=== PATIENT | male | born 1960 | race Caucasian/White ===

== ENCOUNTER 2025-02-20 07:33 | Outpatient (CLI) | payer BC, SELFPAY | END 2025-02-20 07:34 | disposition home or self-care (01) | LOC: NFLDREF 02-22 03:52 | PROVIDERS: PCP Family Medicine; Referring Provider Family Medicine; Visit Provider Family Medicine | DX: E78.5 Hyperlipidemia, unspecified (principal); R03.0 Elevated blood-pressure reading, without diagnosis of hypertension; Z12.5 Encounter for screening for malignant neoplasm of prostate | CPT/HCPCS: 80053; 80061; G0103 ==

== ENCOUNTER 2025-02-27 07:14 | Outpatient (CLI) | payer BC, SELFPAY ==
--- NOTE | 2025-02-27 07:15 | CRLHL7_ITS ---
For Patients: As a result of the Century Cures Act, medical imaging exams and procedure reports are released immediately into your electronic medical record. You may view this report before your referring provider. If you have questions, please contact your health care provider. Examination: US abdominal aorta Indication: Abdominal aortic aneurysm screening. Technique: Swenson scale and color Doppler images of the aorta and common iliac arteries are obtained. Comparison: None Findings: Proximal aorta: 2.6 x 2.6 cm, as visualized, partially obscured by bowel gas Mid aorta: 2.4 x 2.3 cm Distal aorta: 1.8 x 1.8 cm Right common iliac artery: 1.2 x 1.2 cm Left common iliac artery: 1.2 x 1.2 cm Impression: No abdominal aortic aneurysm. Dictated by Dominic Watsno MD @ 02/28/2025 10:52:09 AM (Electronically Signed)
== END 2025-02-27 07:15 | disposition home or self-care (01) ==
PROVIDERS: PCP Family Medicine; Visit Provider Family Medicine
DX: Z13.6 Encounter for screening for cardiovascular disorders (principal)
CPT/HCPCS: 76706

== ENCOUNTER 2025-03-03 06:25 | Outpatient (CLI) | payer BC, SELFPAY ==
--- NOTE | 2025-03-03 08:10 | P.ANES_ITS ---
Anesthesia Charges Start Date/Time Anesthesia Start Date: 03/03/25 Anesthesia Start Time: 07:21 Stop Date/Time Anesthesia Stop Date: 03/03/25 Anesthesia Stop Time: 08:07 Coding CPT Codes CPT Codes: OBEY LWR INTST NDNJ NOS - 24356 ([id number]) P1 - NORMAL HEALTHY PATIENT, QK - ENTRY LEVEL FINANCE 2-4 CNCRNT ANES PROC, QX - FILM CUTTER SVC W/ MED DIRECTION
--- NOTE | 2025-03-03 08:10 | W.ANESCHARGE ---
Anesthesia Charges Start Date/Time Anesthesia Start Date: 03/03/25 Anesthesia Start Time: 07:21 Stop Date/Time Anesthesia Stop Date: 03/03/25 Anesthesia Stop Time: 08:07 Coding CPT Codes CPT Codes: OBEY LWR INTST NDNV NOS - 59994 ([id number]) P1 - NORMAL HEALTHY PATIENT, QK - DRUM LOADER AND UNLOADER 2-4 CNCRNT ANES PROC, QX - FARM CREW MEMBER SVC W/ MED DIRECTION
--- NOTE | 2025-03-03 08:12 | P.ANES_ITS ---
Anesthesia Charges Start Date/Time Anesthesia Start Date: 03/03/25 Anesthesia Start Time: 07:21 Stop Date/Time Anesthesia Stop Date: 03/03/25 Anesthesia Stop Time: 08:07 Coding CPT Codes CPT Codes: OBEY LWR INTST NDUT NOS - 17962 ([id number]) P1 - NORMAL HEALTHY PATIENT, QK - HOUSING COUNSELOR 2-4 CNCRNT ANES PROC, QX - CUTTING MACHINE OFFBEARER SVC W/ MED DIRECTION
--- NOTE | 2025-03-03 08:12 | W.ANESCHARGE ---
Anesthesia Charges Start Date/Time Anesthesia Start Date: 03/03/25 Anesthesia Start Time: 07:21 Stop Date/Time Anesthesia Stop Date: 03/03/25 Anesthesia Stop Time: 08:07 Coding CPT Codes CPT Codes: OBEY LWR INTST NDCA NOS - 24961 ([id number]) P1 - NORMAL HEALTHY PATIENT, QK - PAID INTERN 2-4 CNCRNT ANES PROC, QX - HEAD GOLF COACH SVC W/ MED DIRECTION
== END 2025-03-03 06:26 | disposition home or self-care (01) ==
LOC: OP CLINIC 06:26
PROVIDERS: PCP Family Medicine; Visit Provider Surgery
DX: Z12.11 Encounter for screening for malignant neoplasm of colon (principal); D12.4 Benign neoplasm of descending colon; D12.5 Benign neoplasm of sigmoid colon; D12.3 Benign neoplasm of transverse colon; K64.8 Other hemorrhoids; K52.89 Other specified noninfective gastroenteritis and colitis
CPT/HCPCS: 00811; 00812; 45380; 45385; 88305; J2704

== ENCOUNTER 2025-03-18 12:30 | Outpatient (CLI) | payer MEDICARE, SELFPAY ==
--- OUTSIDE RECORDS SUMMARY | 2025-03-18 12:48 | XMS_ITS | Clinical Summary ---
Author Organization [facility] Address [address] [place] [address] Care Team Providers Care Sailboat Captain Name Role Phone Unavailable Primary Care Provider Unavailabl e Source Comments Patient records contain information from all sites at [facility]. For routine questions regarding patient records, call [phone] during business hours, M-F 8:00 AM - 5:00 PM Central Time. Record requests for emergency care only can be directed to [phone] at any time.[facility] Encounters Date Type Department Care Team Description 01/31/2025 2:45 PM CDT Virtual Visit Department of Obstetrics and Gynecology in [place], [place] [address] [place] [phone] Fouzia Woodson MTangelaSTangela, ALMA Testing Genetic (Primary Dx) 12/30/2024 11:35 AM CDT - 12/30/2024 11:59 PM CDT Hospital Encounter Department of Laboratory Medicine and Pathology, [facility], in [place], [place] [address] [place] [phone] Jeffrey Garcia M.D. Testing Genetic Discharge Disposition: Home or Self Care 12/30/2024 Clinical Communication Department of Medical Genetics in [place], [place] [address] [place] [phone] Whit Naik RADJulia: ZO 12/30/2024 Documentation Department of Medical Genetics in [place], [place] [address] [place] [phone] Fouzia Woodson MTangelaSTangela, ALMA Genetic Evaluation from Last 3 Months Social History Tobacco Use Types Packs/Day Years Used Date Smoking Tobacco: Never Assessed Sex and Gender Information Value Date Recorded Sex Assigned at Not on file Legal Sex Male 9:14 AM CDT Gender Identity Not on file Sexual Orientation Not on file Plan of Treatment Health Maintenance Due Date Last Done Comments CT Colonography 1959 Cologuard 1959 Colonoscopy 1959 Colorectal Cancer Screening 1959 FIT 1959 Fasting Glucose for Diabetes Screening 1959 Hepatitis C Screening 1959 Pneumococcal vaccine (50+ years) (1 of 1 - PCV) 2009 COVID-19 Vaccine (3 - 2023-2 5 season) 2024 01/19/2021, 12/29/2020 DTaP,Tdap,and Td Vaccines (2 - Td or Tdap) 05/22/2024 05/22/2014 Depression Screening (Annual PHQ-2) 09/18/2024 Fall Risk Screen (Annual) 09/18/2024 Influenza Vaccine (#1) 2025 5, 06/14/2010 Zoster Vaccines Completed 05/21/2023, 12/02/2022 IPV Vaccines Aged Out No longer eligi ble based on patient's age to complete this topic Insurance [facility]
--- OUTSIDE RECORDS SUMMARY | 2025-03-18 12:57 | XMS_ITS | Clinical Summary ---
Author Organization [facility] Address [address] [place] [address] Care Team Providers Care Newspaper Editor Name Role Phone Naren, Primary Care Provider Unavailabl e Allergies No known active allergies Medications No known medications Encounters Date Type Department Care Team Description 03/18/2025 1:00 PM CDT Orders Only [facility] [address] [place] [address] <No scans attached> 03/04/2025 Lab Requisition [facility] [phone] Paris Echavarria MD from Last 3 Months Immunizations Immunization Administration Dates Next Due COVID-19 vaccine ([facility] 30mcg/0.3mL) MARISA Brewer 12/29/2020 Influenza, IIV3 (Age >=3 years) 06/22/2015,06/14 Tdap 05/22/2014 Zoster (Shingrix-RZV, recombinant) 12/02/2022 Social History Tobacco Use Types Packs/Day Years Used Date Smoking Tobacco: Never Smokeless Tobacco: Never Tobacco Cessation:Counseling Given: Yes Alcohol Use Standard Drinks/Week Comments Yes 6 (1 standard drink = 0.6 oz pur e alcohol) beer Social Connections Answer Date Recorded Frequency of Communication with Friends and Fami ly Not on file 09/18/2021 Financial Resource Strain Answer Date R ecorded Difficulty of Paying Living Expenses Not on file 09/18/2021 Difficulty of Paying Living Expenses Not on file 09/18/2021 Sex and Gender Information Value Date Recorded Sex Assigned at Not on file Legal Sex Male 5:41 AM TEST DATA DEVELOPER Gender Identity Not on file Sexual Orientation Not on file 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 Not on file Not on file Not on file Obstetrics History Last Filed Vital Signs Vital Sign Reading Time Taken Comments Blood Pressure 136/76 01/02/2023 9:27 AM CDT Pulse 76 01/02/2023 9:27 AM CDT Temperature 36.7 C (98.1 F) 01/04/2021 8:45 AM CDT Respiratory Rate - - Oxygen Saturation 100% 01/04/2021 8:45 AM CDT Inhaled Oxygen Concentration - - Weight 63.5 kg (140 lb) 01/02/2023 9:27 AM CDT Height 160 cm (5' 3) 01/02/2023 9:27 AM CDT Body Mass Index 24.8 01/02/2023 9:27 AM CDT Plan of Treatment Upcoming Encounters Date Type Department Care Team (Late st Contact Info) Description 03/18/2025 1:00 PM CDT Orders Only [facility] & [address] [address] <No scans attached> Health Maintenance Due Date Last Done Comments Depression screening for age 12+ 1971 Hepatitis C screening for ag e 18-79 1977 Colonoscopy through age 75 02/21/2004 Lipids for age 45-75 02/21/2004 Pneumococcal series for age 50+ (1 of 1 - PCV) 2009 Zoster (shingles) series for age 50+ (2 of 2) 01/27/2023 12/02/2022 BMI (ht and wt on same day) for age 18+ 01/03/2024 01/02/2023, 01/04/2021, 01/04/2019 COVID-19 vaccine series ( season) 2024 01/19/2021, 12/29/2020 Tetanus booster 05/22/2024 05/22/2014 Influenza Vaccine (Season Ended) 2025 06/22/2015, 06/14/2010 RSV vaccine for adults or (1 - 1-dose 75+ series) 2034 (IA) Tdap Completed 05/22/2014 Hepatitis B series for 19+ Aged Out N o longer eligible based on patient's age to complete this topic Procedures Procedure Name Priority Date/Time Associated Diagnosis Comments LAB TRACKING EVENT Routine 03/03/2025 7: 50 AM CDT PATH TISSUE EXAM Routine 03/03/2025 7:50 AM CDT from Last 3 Months Results * LAB TRACKING EVENT (03/03/2025 7:50 AM CDT) Other (Other) Client Collect / Unknown 03/03/2025 7:50 AM CDT 03/04/2025 6:21 AM CDT us Paris Echavarria MD LAB BILL ONLY Final Re sult [facility] [address] [place] [address], * PATH TISSUE EXAM (03/03/2025 7:50 AM CDT) Case Report Pathology Report Case: [id number] Authorizing Provider: Paris Echavarria MD Collected: 03/03/2025 0750 Ordering Location: [facility] Received: 03/04/2025 1313 Pathologist: Yogi Nieves MD Specimens: A) - Hepatic Flexure Polyp B) - Descending Colon Polyp, multiple polyps C) - Sigmoid Polyp, sigmoid colon polyp D) - Rectal Biopsy 03/05/2025 1:37 PM CDT [facility] Final Diagnosis A) COLON, HEPATIC FLEXURE, POLYPECTOMY: 1. Sessile serrated adenoma 2. Negative for overt dysplasia 3. Per the colonoscopy report: a. Polyp size: 11 mm b. Resection: Complete c. Retrieval: Complete B) COLON, DESCENDING, POLYPECTOMIES: 1. Sessile serrated adenoma (1) and hyperplastic polyp (1) 2. Negative for overt dysplasia 3. Per the colonoscopy report: a. Polyp sizes: 4 to 6 mm b. Resection: Complete c. Retrieval: Complete C) COLON, SIGMOID, POLYPECTOMY: 1. Tubular adenoma 2. Negative for high grade dysplasia 3. Per the colonoscopy report: a. Polyp size: 6 mm b. Resection: Complete c. Retrieval: Complete D) RECTUM, BIOPSY: 1. Normal anal squamous and rectal glandular mucosae 2. Negative for viral change, dysplasia and malignancy 03/05/2025 1:37 PM CDT [facility] at 1337 CDT Clinical Information Screening colonoscopy. 03/05/2025 1:37 PM CDT [facility] Gross Description A) Received in formalin are 8 nunez mucosal fragments ranging from 1 mm to 8 mm in greatest dimension, which are entirely submitted in one cassette. It is labeled with the patient's name and designated hepatic flexure polyp. B) Received in formalin are 4 red/nunez mucosal fragments ranging in size from 3 mm to 12 mm in greatest dimension. The 2 largest fragments are differentially inked (blue and black) and sectioned. The specimen is entirely submitted in 1 cassette. It is labeled with the patient's name and designated descending colon multiple polyps. C) Received in formalin are 4 nunez mucosal fragments ranging from 2 mm to 4 mm in greatest dimension, which are entirely submitted in one cassette. It is labeled with the patient's name and designated sigmoid colon polyp. D) Received in formalin is a nunez mucosal fragment measuring 5 mm in greatest dimension, which is entirely submitted in one cassette. It is labeled with the patient's name and designated rectum. Taylor Smith 03/04/2025 1:47 PM 03/05/2025 1:37 PM CDT [facility] Microscopic Description The final diagnosis is based on microscopic examination of appropriate sections of all specimens. 03/05/2025 1:37 PM CDT [facility] Additional Information Interpreted at [facility], Central Laboratory - [address], [place] [address] 03/05/2025 1:37 PM CDT [facility] Other (Hepatic Flexure Polyp) 03/03/2025 7:50 AM CDT 03/04/2025 1:13 PM CDT Specimen (specimen) (Descending Colon Polyp) 03/03/2025 7:50 AM CDT 03/04/2025 1:13 PM CDT Specimen (specimen) (Sigmoid Polyp) 03/03/2025 7:50 AM CDT 03/04/2025 1:13 PM CDT Specimen (specimen) (Rectal Biopsy) 03/03/2025 7:50 AM CDT 03/04/2025 1:13 PM CDT us Paris Echavarria MD PATHOLOGY/CYTOLOGY Final Result [facility] [address] [place] [address], [place] from Last 3 Months Care Teams Newspaper Editor Relationship Specialty Start Date End Date None, Dr Honeycutt PCP - General 03/12/07
[2025-03-18] MEDS: PERFLUTREN LIPID MICROSPHERES 2 ML VIAL IVP (13:16)
[2025-03-18 13:57] VITALS: BP 162/78; PULSE 82; RESP 16; O2SAT 100
--- NOTE | 2025-03-18 14:10 | W.PM.STED ---
Stress Test Note Date Date of test: 03/18/25 Providers Primary care provider: Keny Bertrand Stress test physician: Dannie Alarcon Stress Test Note Stress test ordered: Stress Echo Indication for test: Abnormal heart score Stress test medicine: Definity Results discussion: Patient is a delightful gentleman who is in no distress. Presents for the above test, discussed the risks benefits and side effects of this test and would like to go forward. Cardiac stress test she is reviewed in detail. Pretest EKG shows normal sinus rhythm with a ventricular rate 84, BP is 164/96. No acute ST wave changes are noted standard Marcellus protocol for 10 minute duration with, obtained a metabolic equivalent of 11.5 Mets with a maximum heart rate of 157, this is 119% of the maximum, he did not have any chest pain, conditioning was felt to be excellent, during this test there is no specific ST wave changes suggestive of ischemia. He recovered normally. Preliminary review by myself in the tech showed the basal abnormality, that did not look to be a lot worse, from rest to post. Impression: Negative electrographic portion of stress echo, subjectively negative, conditioning was felt to be excellent Follow up suggested: Await echo reading, clinical correlation with this will be needed, patient left this testing facility in good condition there were no complications.
== END 2025-03-18 14:00 | disposition home or self-care (01) ==
PROVIDERS: PCP Family Medicine; Visit Provider Family Medicine
DX: R93.1 Abnormal findings on diagnostic imaging of heart and coronary circulation (principal); I35.1 Nonrheumatic aortic (valve) insufficiency; I34.0 Nonrheumatic mitral (valve) insufficiency; E78.5 Hyperlipidemia, unspecified
CPT/HCPCS: 93016; 93325; 93351; Q9957

== ENCOUNTER 2025-06-02 10:46 | Outpatient (CLI) | payer MEDICARE, BC, SELFPAY | END 2025-06-02 10:47 | disposition home or self-care (01) | LOC: NFLDREF 10:47 | PROVIDERS: PCP Family Medicine; Visit Provider Family Medicine | DX: I25.10 Atherosclerotic heart disease of native coronary artery without angina pectoris (principal) | CPT/HCPCS: 80048; 80061; 84450; 84460 ==

== ENCOUNTER 2025-06-16 09:20 | Outpatient (CLI) | payer MEDICARE, BC, SELFPAY | END 2025-06-16 09:21 | disposition home or self-care (01) | LOC: NFLDREF 06-17 08:45 | PROVIDERS: PCP Family Medicine; Referring Provider Family Medicine; Visit Provider Family Medicine | DX: E87.1 Hypo-osmolality and hyponatremia (principal) | CPT/HCPCS: 80048 ==